=== PATIENT | female | born 1990 | race Caucasian/White ===

== ENCOUNTER 2017-03-15 00:14 | Emergency (ER) | payer MEDICAID, OTHER ==
[~2017-03-15] VITALS: Ht 165.1 cm; Wt 75.5 kg
[2017-03-15 00:24] VITALS: Ht 165.1 cm; Wt 75.5 kg
[2017-03-15] MEDS ORDERED: ONDANSETRON 4 MG INJ IV STA (00:31)
[2017-03-15] MEDS ORDERED: SOD CHLORIDE 0.9% 1,000 ML IV STA (00:31)
[2017-03-15] MEDS ORDERED: morphine 2 MG INJ IV STA (00:31)
[2017-03-15 00:39] LABS: URINE BLOOD (Dip) POC 1+ (NEGATIVE)
[2017-03-15 00:54] LABS: BASOPHIL # 0.1 10^3/ul (0.0-0.1); BASOPHILS % 0.7 % (0.0-2.0); EOSINOPHILS # 0.2 10^3/ul (0.0-0.5); EOSINOPHILS % 1.6 % (0.0-7.0); HEMATOCRIT 40.4 % (37.0-47.0); HEMOGLOBIN 12.9 g/dl (12.0-16.0); LYMPHOCYTES # 4.4 10^3/ul (0.8-2.9); LYMPHOCYTES % 37.4 % (15.0-51.0); MEAN CORPUSCULAR HEMOGLOBIN 28.7 pg (29.0-33.0); MEAN CORPUSCULAR HGB CONC 31.9 g/dl (32.0-37.0); MEAN CORPUSCULAR VOLUME 89.8 fl (82.0-101.0); MEAN PLATELET VOLUME 11.2 fl (7.4-10.4); MONOCYTE # 1.1 10^3/ul (0.3-0.9); MONOCYTES % 9.6 % (0.0-11.0); NEUTROPHILS % 50.4 % (39.0-77.0); PLATELET COUNT 256 10^3/UL (140-415); RED CELL DISTRIBUTION WIDTH 13.1 % (11.5-14.5); WHITE BLOOD COUNT 11.9 10^3/ul (4.8-10.8)
[2017-03-15 01:13] LABS: ALBUMIN 4.2 g/dl (3.3-4.9); ALBUMIN/GLOBULIN RATIO 1.13; BILIRUBIN,INDIRECT 0.1 mg/dl (0-1.1); BILIRUBIN,TOTAL 0.1 mg/dl (0.2-1.3); CALCIUM 9.6 mg/dl (8.4-10.2); CREATININE 0.68 mg/dl (0.44-1.00); POTASSIUM 3.7 mmol/L (3.5-5.1); TOTAL PROTEIN 7.9 g/dl (6.1-8.1)
[2017-03-15 01:38] LABS: ADD UMIC YES; UR ASCORBIC ACID NEGATIVE (NEGATIVE); UR BACTERIA FEW /HPF (NONE SEEN); UR BILIRUBIN (Dip) NEGATIVE (NEGATIVE); UR BLOOD (Dip) 1+ mg/dL (NEGATIVE); UR CLARITY CLEAR (CLEAR); UR COLOR STRAW (YELLOW); UR GLUCOSE (Dip) NEGATIVE (NEGATIVE); UR KETONES (Dip) NEGATIVE (NEGATIVE); UR LEUKOCYTE ESTERASE (Dip) NEGATIVE Leu/ul (NEGATIVE); UR NITRITE (Dip) NEGATIVE (NEGATIVE); UR RBC 1 /HPF (0-5); UR SPECIFIC GRAVITY (Dip) 1.018 (1.003-1.030); UR SQUAMOUS EPITHELIAL CELL FEW /HPF (FEW); UR TOTAL PROTEIN (Dip) NEGATIVE (NEGATIVE); UR UROBILINOGEN (Dip) NEGATIVE (NEGATIVE)
--- NOTE | 2017-03-15 01:52 | RADRPT ---
PROCEDURE: US Pelvis. CLINICAL INDICATION: Bilateral pelvic pain times 2 days. Last menstrual period 02/19/2017 TECHNIQUE: Multiple sonographic images of the pelvis were obtained utilizing a transabdominal tech nique. The images were reviewed on a PACS workstation. COMPARISON: None. FINDINGS: The uterus measures 8.8 x 4.4 x 6.1 cm. There is a small amount of fluid seen in the endometrial cav ity. The thickness of the endometrium equals 1.3 cm. The right ovary measures 4.5 x 2.1 x 2.5 cm an d is unremarkable. The left ovary measures 3 x 1.6 x 1.9 cm and is unremarkable. Color flow and spe ctral analysis demonstrates normal arterial and venous flow in both ovaries. No adnexal mass seen. Small amount of free fluid in right adnexal region. IMPRESSION: Small amount of fluid in the endometrial cavity. Small amount of free fluid in right adnexal region may be physiologic. Otherwise unremarkable examination. Please see above. RPTAT: HJES .Rommel Baldwin MD, Date Time Electronically viewed and signed by .Rommel Baldwin MD, on 03/15/2017 01:52 .S/
[2017-03-15] MEDS ORDERED: HYDR-906 PO (02:55)
[2017-03-15] MEDS ORDERED: NAPR-688 PO (02:55)
[2017-03-15 02:59] VITALS: BP 115/64; PULSE 67; RESP 16; TEMP 98.4
--- NOTE | 2017-03-15 03:13 | RADRPT ---
PROCEDURE: XR Abdomen. CLINICAL INDICATION: Lower abdominal pain. TECHNIQUE: 3 frontal views of the abdomen. COMPARISON: None. FINDINGS: The bowel gas pattern is normal. Mild to moderate solid stool in the cecum and right colon. There is no evidence of obstruction. There are no abnormal calcifications overlying the urinary tracts. Radiopaque foreign bodies over the left maribel pelvis are linear, and measure 19 mm and 12 mm respecti vely. These have the appearance of a surgical needle. Findings are otherwise age indeterminate and n onspecific. The osseus structures are unremarkable. IMPRESSION: 1. Nonobstructive nonspecific bowel gas pattern. 2. Radiopaque foreign bodies over the left maribel pelvis have the appearance of a surgical needle and measure 19 mm and 12 mm, respectively. 3. Findings are otherwise age indeterminate. 4. Request clinical correlation for recent surgery. RPTAT: [facility] Physician Bhargav Date Time Electronically viewed and signed by Physician Bhargav on 03/15/2017 03:12 RS/
--- NOTE | 2017-03-15 03:16 | ERD ---
ER Documentation Chief Complaint Date/Time DATE: 03/15/17 TIME: 03:12 Chief Complaint lower abd pain radiating to back x 2 days. -n/v HPI This 26-year-old female comes emergency room for 2 days of constant pelvic pain which is both central and bilateral. Described as a pain-like pain. He is to the back. She does not have nausea vomiting diarrhea or vaginal symptoms.. ROS All systems reviewed and are negative except as per history of present illness. Medications Home Meds Active Scripts Naproxen* (Naproxen*) 500 Mg Tablet, 500 MG PO BID Y for PAIN, #20 TAB Prov:DENNYS BIANCHI DO 03/15/17 Hydrocodone/Acetaminophen ([place] 5-325 Tablet) 1 Each Tablet, 1 EACH PO Q6, #17 TAB Prov:DENNYS BIANCHI DO 03/15/17 Allergies Allergies: Coded Allergies: No Known Drug Allergy (Verified Allergy, Unknown, 08/11/08) Physical Exam Vitals Vital Signs Date Time Temp Pulse Resp B/P Pulse Ox O2 Delivery O2 Flow Rate FiO2 03/15/17 00:24 98.4 63 18 123/72 100 Physical Exam Const: [] Mild distress Head: Atraumatic Eyes: Normal Conjunctiva ENT: Normal External Ears, Nose and Mouth. Abd: Soft, non tender, non distended. Normal bowel sounds Skin: No petechiae or rashes Back: No midline or flank tenderness Ext: No cyanosis, or edema Neur: Awake and alert and oriented 3, no focal deficits Psych: Normal Mood and Affect Result Diagram: 03/15/17 0040 03/15/17 0040 Results 24 hrs Laboratory Tests Test 03/15/17 00:35 03/15/17 00:40 03/15/17 00:47 Urine Color STRAW Urine Clarity CLEAR Urine pH 7.0 Urine Specific [place] 1.018 Urine Ketones NEGATIVEmg/dL Urine Nitrite NEGATIVEmg/dL Urine Bilirubin NEGATIVEmg/dL Urine Urobilinogen NEGATIVEmg/dL Urine Leukocyte Esterase NEGATIVELeu/ul Urine Microscopic RBC 1/HPF Urine Microscopic WBC 0/HPF Urine Squamous Epithelial Cells FEW/HPF Urine Bacteria FEW/HPF Urine Hemoglobin 1+mg/dL Urine Glucose NEGATIVEmg/dL Urine Total Protein NEGATIVEmg/dl White Blood Count 11.910^3/ul Red Blood Count 4.5010^6/ul Hemoglobin 12.9g/dl Hematocrit 40.4% Mean Corpuscular Volume 89.8fl Mean Corpuscular Hemoglobin 28.7pg Mean Corpuscular Hemoglobin Concent 31.9g/dl Red Cell Distribution Width 13.1% Platelet Count 43329^3/UL Mean Platelet Volume 11.2fl Neutrophils % 50.4% Lymphocytes % 37.4% Monocytes % 9.6% Eosinophils % 1.6% Basophils % 0.7% Nucleated Red Blood Cells % 0.0/100WBC Neutrophils # 6.010^3/ul Lymphocytes # 4.410^3/ul Monocytes # 1.110^3/ul Eosinophils # 0.210^3/ul Basophils # 0.110^3/ul Nucleated Red Blood Cells # 0.010^3/ul Sodium Level 143mmol/L Potassium Level 3.7mmol/L Chloride Level 104mmol/L Carbon Dioxide Level 29mmol/L Anion Gap 14 Blood Urea Nitrogen 12mg/dl Creatinine 0.68mg/dl Glucose Level 87mg/dl Calcium Level 9.6mg/dl Total Bilirubin 0.1mg/dl Direct Bilirubin 0.00mg/dl Indirect Bilirubin 0.1mg/dl Aspartate Amino Transf (AST/SGOT) 19IU/L Alanine Aminotransferase (ALT/SGPT) 38IU/L Alkaline Phosphatase 65IU/L Total Protein 7.9g/dl Albumin 4.2g/dl Globulin 3.70g/dl Albumin/Globulin Ratio 1.13 Lipase 69U/L Bedside Urine pH (LAB) 7.0 Bedside Urine Protein (LAB) Negative Bedside Urine Glucose (UA) Negative Bedside Urine Ketones (LAB) Negative Bedside Urine Blood 1+ Bedside Urine Nitrite (LAB) Negative Bedside Urine Leukocyte Esterase (L Negative Current Medications Medications (Trade) Dose Ordered Sig/Daniela Route PRN Reason Start Time Stop Time Status Last Admin Dose Admin Sodium Chloride (NS) 1,000 ml @ 1,000 mls/hr Q1H STAT IV 03/15/17 00:31 03/15/17 01:30 DC 03/15/17 00:53 Morphine Sulfate (morphine) 2 mg ONCE STAT IV 03/15/17 00:31 03/15/17 00:33 DC 03/15/17 00:52 Ondansetron HCl (Zofran Inj) 4 mg ONCE STAT IV 03/15/17 00:31 03/15/17 00:33 DC 03/15/17 00:52 Procedures/MDM 26-year-old female with pelvic pain. No signs of serious pathology. No signs of ovarian torsion, patient is not . X-ray was also obtained look for constipation which there is retained stool in the right colon but no pancolonic constipation. Was given morphine, Zofran, a liter of normal saline after which she felt well and had no symptoms. Mild nonspecific leukocytosis with no signs of UTI. We will discharge with primary care follow-up and return precautions. Also discharging with a few [place] and some naproxen. Pelvic ultrasound interpretation: Mild nonspecific free fluid, no ovarian torsion or cyst. Departure Diagnosis: Primary Impression: Pelvic pain Additional Impression: Leukocytosis, unspecified Condition: Stable Patient Instructions: Pelvic Pain, Unknown Cause Additional Instructions: Call your primary care doctor TOMORROW for an appointment during the next 2-3 days.See the doctor sooner or return here if your condition worsens before your appointment time. DENNYS BIANCHI DO Mar 15, 2017 03:16
== END 2017-03-15 03:43 | disposition home or self-care (01) ==
LOC: E/R 00:14
DX: R10.2 Pelvic and perineal pain (principal); D72.829 Elevated white blood cell count, unspecified
CPT/HCPCS: 36415; 74010; 76856; 80053; 81001; 83690; 85025; 96374; 96375; J2270; J2405; J7030; Z7502; 81003

== ENCOUNTER 2017-07-21 09:50 | Emergency (ER) | END 2017-07-21 13:08 | disposition home or self-care (01) ==